=== PATIENT | female | born 1980 | race Caucasian/White ===

== ENCOUNTER 2016-09-15 14:45 | Emergency (ER) ==
[2016-09-15 15:02] VITALS: BP 138/78
--- NOTE | 2016-09-15 15:34 | PROVIDER DOCUMENTATION ---
HPI-Respiratory General - General Chief Complaint: Cold Symptoms Stated Complaint: sore throat/ear pain/fever Time Seen by Provider: 09/15/16 15:15 Source: patient Allergies/Adverse Reactions: Patient Allergies Allergy/AdvReac Type Severity Reaction Status Date / Time No Known Allergies Allergy Verified 08/04/16 12:23 Home Medications: Ibuprofen 200 mg PO DIRECTED 08/04/16 - History of Present Illness-Resp Nature of Presenting Problem: 36 y/o WF c/o fevers, chills, sinus congestion, cough, and body aches x 24 hours. States people at home and at work have similar symptoms. Denies sob or wheezing. Denies abdominal pain n/v/d. Took tylenol cough and cold with minimal relief. Fevers up to 102 F, came down with treatment. cough non-productive Review of Systems - Adult - REVIEW OF SYSTEMS - ADULT Constitutional: reports: chills, fever, fatique Eyes: reports: no symptoms reported. denies: blurred vision, double vision, eye pain Ears, Nose, Mouth & Throat: reports: see HPI, ear pain, sinus problem, nose pain , throat pain Cardiovascular: reports: no symptoms reported. denies: chest pain, palpitations Respiratory: reports: see HPI, cough. denies: shortness of breath, wheezing Gastrointestinal: reports: no symptoms reported. denies: abdominal pain, diarrhea, nausea, vomiting Genitourinary: reports: no symptoms reported. denies: dysuria, discharge, frequency Musculoskeletal: reports: see HPI, muscle aches. denies: bone pain, back pain, joint pain Integumentary: reports: no symptoms reported. denies: rash Neurological: reports: no symptoms reported. denies: ataxia, dizziness/vertigo , headache/migraines Psychiatric: reports: no symptoms reported Endocrine: reports: no symptoms reported Hematologic/Lymphatic: reports: no symptoms reported Allergic/Immunologic: reports: no symptoms reported All Other Systems: Reviewed and Negative Past History - Adult - PAST MEDICAL HISTORY-ADULT Review of Records: reports: Old Records Reviewed, Nursing Assessment Review, Medications Reviewed, Social history reviewed & non-contributory. Major Childhood Illnesses: reports: denies history Cardiovascular: reports: denies history Respiratory: reports: denies history Gastrointestinal: reports: denies history Obstetrical/Gynecological: reports: denies history Genitourinary: reports: denies history Musculoskeletal: reports: denies history Neurological: reports: denies history Endocrine/Immune: reports: denies history Other Conditions: reports: denies history - FAMILY HISTORY Family History: reviewed, not pertinent Physical Exam-General - PHYSICAL EXAM-ADULT Initial Vital Signs Reviewed: Yes - CONSTITUTIONAL General Appearance: appears well, alert, no apparent distress - EYES Eyes: PERRL/EOMI, pink conjunctivae - HEAD, EARS, NOSE, MOUTH & THROAT HENMT: normocephalic/atraumatic, moist mucous membranes, normal ENT inspection, TMs normal, pharynx normal. negative: pharyngeal erythema, tonsillar exudate, TM abnormal - NECK Neck: non-tender, full range of motion, supple, normal inspection. negative: lymphadenopathy - RESPIRATORY Respiratory: chest non-tender, lungs clear, normal breath sounds, no pleuratic chest pain, no respiratory distress, no accessory muscle use. negative: respiratory distress, decreased breath sounds, accessory muscle use, crackles, rales, rhonchi, wheezing - CARDIOVASCULAR Cardiovascular: normal peripheral pulses, regular rate, rhythm, no edema - LYMPHATIC Lymphatic: no adenopathy - MUSCULOSKELETAL Extremity: normal gait - SKIN Integumentary: normal color, normal turgor, warm/dry - NEUROLOGIC Neurologic: grossly normal, no motor/sensory deficits - PSYCHIATRIC Psych/Mental Status: normal mood/affect, normal thought content, normal thought process, oriented x 3 Progress - PLAN OF CARE/RESULTS Progress/Plan/Lab Results: Vital Signs Temp Pulse Resp BP Pulse Ox 09/15/16 15:00 98.2 F 116 H 20 138/78 99 No Known Allergies Allergy (Verified 08/04/16 12:23) Acetaminophen/Diphenhydramine [Percogesic 325-12.5 mg Tablet] 1 each PO Q6-8H PRN PRN #30 tablet 08/04/16 Amoxicillin [Amoxil] 500 mg PO BID #10 capsule 08/04/16 Benzocaine 20% Gel [Orajel Maximum St 20% Gel] 1 applicatn TOP 4XDAY PRN PRN #1 tube 08/04/16 Ibuprofen 200 mg PO DIRECTED 08/04/16 Orders Category Date Time Status Flu Swab [INFLUENZA SCREEN A/B] Stat Lab 09/15/16 15:26 Completed Departure - Departure Time of Disposition Order: 16:09 DIAGNOSIS: Viral URI with cough Disposition: HOME 01 Certified Medical Emergency: Emergent Condition: Stable Additional Instructions: Tylenol and motrin for the body aches and pains ED Follow Up Instructions: You have been treated by a care provider in the Emergency Department. These instructions are being provided to you so you can have an understanding of how to care for yourself upon discharge. Upon discharge from the Emergency Department, you are responsible for making arrangements for follow-up care by a physician of your choice. Take all prescribed medications as directed. Return to the Emergency Department immediately for any new or worsening symptoms. You may call the Physician Referral phone number at [phone] to obtain a list of Physicians who are taking new patients. Prescriptions: D-Methorphan Hb/P-Epd HCl/Bpm [Bromfed Dm Cough Syrup] 5 ml PO Q6H PRN PRN #1 syrup PRN Reason: Cough Prednisone [Deltasone] 20 mg PO DIRECTED #12 tablet Forms: Return to School/Parent Work Attestation - Physician/ Mid-level Attestation Patient care was provided by Mid-level provider ([employer]ER/PA):: Yes Mid-level provider:: Shelley Hamm Mid-level documentation review:: The Mid-level provider documentation, treatment plan and medical decision making was reviewed by the physician who agrees with all treatment and medical decision making by the MLP.
== END 2016-09-15 16:29 | disposition home or self-care (01) ==
LOC: ED 14:45
DX: J06.9 Acute upper respiratory infection, unspecified (principal); R05 Cough; R50.9 Fever, unspecified; R09.81 Nasal congestion; M79.1 Myalgia; H92.09 Otalgia, unspecified ear; R53.83 Other fatigue; R07.0 Pain in throat; J34.89 Other specified disorders of nose and nasal sinuses
CPT/HCPCS: 87804; 99283